=== PATIENT | female | born 2000 | race Caucasian/White ===

== ENCOUNTER 2018-11-03 12:35 | Outpatient (REF) | payer MEDICAID, SELFPAY | END 2018-11-03 12:55 | LOC: LBN 12:35 | PROVIDERS: PCP Registered Nurse; Visit Provider Nurse Practitioner Family | DX: R35.0 Frequency of micturition (principal) | CPT/HCPCS: 87086 ==

== ENCOUNTER 2020-05-03 11:03 | Outpatient (REF) | payer MEDICAID, SELFPAY ==
--- NOTE | 2020-05-03 10:30 | PAPFT_PTH ---
PATIENT: GUSTAVO GLASS LOC: [facility] U#:[id number] AGE/SX: 20/F ROOM: RE05/03/[address]: BIANCA Cavanaugh : 2000 BED: DIS: 05/03/2020 SPEC #: [id number] RECD: 05/03/20 13:00 STATUS: ALONDRA REIvis #: [id number] DAVID: 05/03/20 10:[address]: Glenis Roberson DEPT: [facility] Cytology RECD BY: Lory Pack ENTERED: 05/03/20 13:01 SP TYPE: PAPFT OTHR DR: TAMMY Leonard Tissues: 1 - CX/ENDOCX FOR PAP SMEARS Procedures: PAP THIN PREP/[facility] Screening Comments: [id number]
[2020-05-04 14:28] LABS: Chlamydia Result Negative (Negative); GC Result Negative (Negative)
== END 2020-05-03 11:23 ==
LOC: LBN 11:03
PROVIDERS: PCP Nurse Practitioner Pediatrics; Visit Provider Nurse Practitioner Family
DX: Z11.3 Encounter for screening for infections with a predominantly sexual mode of transmission (principal); Z12.4 Encounter for screening for malignant neoplasm of cervix
CPT/HCPCS: 87491; 87591; 88142